=== PATIENT | male | born 1960 | race Caucasian/White ===

== ENCOUNTER 2021-06-03 23:16 | Inpatient (IN) | payer OTHER, SELFPAY ==
[~2021-06-03] VITALS: Ht 208.3 cm; Wt 104.8 kg
[2021-06-03 23:25] VITALS: BP 107/62
--- NOTE | 2021-06-03 23:29 | NUR ---
AMBULATED TO ER BED 3
--- NOTE | 2021-06-03 23:40 | NUR ---
Dr. Trinh with pt for MSE
[2021-06-03] MEDS ORDERED: ACETAMINOPHEN EXTRA STRENGTH 500 MG TAB PO ONE (23:50)
[2021-06-03] MEDS ORDERED: cefTRIAXone 1,000 MG in DEXT 5% MINI-BAG PLUS 50 ML IV ONE (23:50)
[2021-06-03] MEDS ORDERED: IPRATROPIUM 0.02% 0.5 MG/2.5 ML NEBU INH ONE (23:50)
[2021-06-03] MEDS ORDERED: DEXAMETHASONE 4 MG/ML VIAL IVP ONE (23:50)
[2021-06-03] MEDS ORDERED: AZITHROMYCIN 250 MG TAB PO ONE (23:50)
[2021-06-03] MEDS ORDERED: ALBUTEROL 0.083% 2.5 MG/3 ML NEBU INH ONE (23:50)
--- NOTE | 2021-06-03 23:51 | NUR ---
glenda swab collected.
[2021-06-04 00:05] LABS: BASOPHILS % (AUTO) 0.5 % (0.0-2.0); LYMPHOCYTES # (AUTO) 0.6 K/uL (2.0-11.5); LYMPHOCYTES % (AUTO) 8.2 % (20.5-51.1); MEAN CORPUSCULAR HEMOGLOBIN 31 pg (27-31); MEAN CORPUSCULAR HGB CONC 34 g/dL (33-37); MEAN CORPUSCULAR VOLUME 90.4 fL (80-94); MONOCYTES # (AUTO) 0.4 K/uL (0.8-1.0); NEUTROPHILS # (AUTO) 6.1 K/uL (1.8-7.7); NEUTROPHILS % (AUTO) 86.3 % (42.2-75.2); PLATELET COUNT (AUTO) 223 K/uL (140-450); RED BLOOD CELL COUNT(AUTO) 4.87 MIL/uL (4.20-6.10); RED CELL DISTRIBUTION WIDTH 13.4 % (11.6-13.7); WHITE BLOOD COUNT (AUTO) 7.1 K/uL (4.8-10.8)
[2021-06-04 00:31] LABS: ALBUMIN 3.1 g/dL (3.4-5.0); ANION GAP 14.1 (8-16); CARBON DIOXIDE 24.5 mmol/L (21-32); CREATININE 0.9 mg/dL (0.6-1.3); POTASSIUM 3.6 mmol/L (3.5-5.1); TOTAL BILIRUBIN 0.5 mg/dL (0.0-1.0)
--- NOTE | 2021-06-04 01:03 | NUR ---
returned from breathing tx outside back to room
[2021-06-04] MEDS ORDERED: ACETAMINOPHEN EXTRA STRENGTH 500 MG TAB ONE (01:05)
[2021-06-04] MEDS ORDERED: cefTRIAXone 1,000 MG VIAL ONE (01:05)
[2021-06-04] MEDS ORDERED: DEXAMETHASONE 4 MG/ML VIAL ONE (01:05)
[2021-06-04] MEDS ORDERED: AZITHROMYCIN 250 MG TAB ONE (01:05)
--- NOTE | 2021-06-04 02:20 | NUR ---
NAD at this time. pt provided with pillow.
--- NOTE | 2021-06-04 04:11 | NUR ---
NAD. pt appears sleeping arousable via verbal stimuli.
--- NOTE | 2021-06-04 06:07 | NUR ---
pt states no needs at this time. NAD. VSS
[2021-06-04 06:27] LABS: BASOPHILS % (AUTO) 0.3 % (0.0-2.0); HEMATOCRIT 41.9 % (36-52); HEMOGLOBIN 14.4 g/dL (12.0-18.0); LYMPHOCYTES # (AUTO) 0.3 K/uL (2.0-11.5); LYMPHOCYTES % (AUTO) 3.7 % (20.5-51.1); MEAN CORPUSCULAR HEMOGLOBIN 31 pg (27-31); MEAN CORPUSCULAR HGB CONC 34 g/dL (33-37); MEAN CORPUSCULAR VOLUME 91.1 fL (80-94); MONOCYTES # (AUTO) 0.4 K/uL (0.8-1.0); MONOCYTES % (AUTO) 5.2 % (1.7-9.3); NEUTROPHILS # (AUTO) 7.4 K/uL (1.8-7.7); NEUTROPHILS % (AUTO) 90.8 % (42.2-75.2); PLATELET COUNT (AUTO) 232 K/uL (140-450); RED BLOOD CELL COUNT(AUTO) 4.61 MIL/uL (4.20-6.10); RED CELL DISTRIBUTION WIDTH 13.3 % (11.6-13.7); WHITE BLOOD COUNT (AUTO) 8.1 K/uL (4.8-10.8)
[2021-06-04 06:47] LABS: ALBUMIN 2.9 g/dL (3.4-5.0); ANION GAP 11.4 (8-16); CARBON DIOXIDE 27.2 mmol/L (21-32); POTASSIUM 3.6 mmol/L (3.5-5.1); TOTAL BILIRUBIN 0.4 mg/dL (0.0-1.0)
--- NOTE | 2021-06-04 07:22 | NUR ---
RECEIVED REPORT FROM DELTA SWEENEY. TRANSFER OF CARE RECEIVED
[2021-06-04] MEDS ORDERED: ALBUTEROL HFA MDI 90 MCG/ACTUATION 8 GM INH PRN (07:35)
[2021-06-04] MEDS ORDERED: AZITHROMYCIN 250 MG TAB PO ONE (07:35)
--- NOTE | 2021-06-04 08:05 | NUR ---
Patient admitted to room 113 via gurney from ED. Received report from ED nurse Nery. Patient was able to ambulate 10ft from gurney to bed with steady gait. No signs of distress. Respirations even & nonlabored in room air. Left AC 20G IV intact and asymptomatic.
[2021-06-04] MEDS: ASCORBIC ACID 500 MG TAB PO SCH (08:10)
[2021-06-04] MEDS: AZITHROMYCIN 250 MG TAB PO SCH (08:10)
[2021-06-04] MEDS: VITAMIN D 400 IU TAB PO SCH (08:10)
[2021-06-04] MEDS: ZINC SULF 220 MG CAP PO SCH ×2 (08:10→20:06)
--- NOTE | 2021-06-04 08:14 | NUR ---
Patient will be admitted to care of DR. MAUDE BRYANT. Admited to TELE. Will go to room 113. Belongings list completed. Report to DELTA CLIFFORD.
[2021-06-04 08:30] VITALS: BP 137/70
[2021-06-04] MEDS: ENOXAPARIN 40 MG/0.4 ML SYR SUBQ SCH (08:34)
[2021-06-04 12:00] VITALS: BP 136/76
--- NOTE | 2021-06-04 14:00 | NUR ---
Teaching provided to patient re: proper use of incentive spirometer. Patient is able to return demonstrate the instructions provided. Encouraged patient to use IS about 10 times every hour while awake. Patient verbalized understanding and agree with care plan.
[2021-06-04 16:00] VITALS: BP 124/68
--- NOTE | 2021-06-04 16:01 | NUR ---
PATIENT HAS BEEN SCREENED AND CATEGORIZED MODERATE NUTRITION RISK. PATIENT WILL BE SEEN WITHIN 3-5 DAYS OF ADMISSION. 06/06/21 06/08/[address]
--- NOTE | 2021-06-04 16:24 | NUR ---
DC PLANNING: RECEIVED A CALL FROM [facility] BAG PATCHER PROVIDE THE REF NUMBER [phone] AND ASKED ME TO CALL THE CM CARLYLE SANDRA [phone] CALLED LEFT A MESSAGE. FAXED ALL THE CLINICALS TO [phone]. CM TO FOLLOW Addendum: 06/08/21 at 1520 by Concetta Clark RN DC PLANNING: CALLED [facility]A WENT STRAIGHT TO LEFT A MESSAGE. CM TO FOLLOW Addendum: 06/09/21 at 1030 by Concetta Clark RN DC PLANNING: FAXED THE HOME O2 ORDER TO [facility] [phone]. CM TO FOLLOW Addendum: 06/09/21 at 1256 by Concetta Clark RN DC PLANNING: RECEIVED A CALL FROM [employer] SPOKE WITH [facility] STATED WILL FAX THE FORM AND NEEDS TO BE SIGNED BY . FAXED BACK THE SIGNED FORM , AWAITING FOR THE ETA. CM TO FOLLOW Addendum: 06/09/21 at 1310 by Concetta Clark RN DC PLANNING: RECEIVED A CALL FROM [facility] [phone] SPOKE WITH SAMIA KIMBROUGH STATED ALL THE DAYS IS APPROVED UNTIL 06/08 AUTH # [id number] AND [employer] IS CONTRACTED WITH THEM. CM TO FOLLOW Addendum: 06/09/21 at 1517 by Concetta Clark RN DC PLANNING: CHECKED WITH [facility] REGARDING THE HOME O2 SPOKE WITH [facility] STATED RECEIVED THE FORM AND STILL NO ETA BUT ONCE ITS DONE THEY WILL CALL FOR THE ETA. PROVIDE CM AND UNIT NUMBER. Addendum: 06/09/21 at 1714 by Concetta Clark RN DC PLANNING: RECEIVED A CALL FROM [facility] SPOKE WITH [employer] STATED THE ETA TIME TO HOME 6-9PM AND TO THE HOSPITAL BETWEEN 6-9PM NOTIFIED PT'S DAUGHTER ADRIANE AND CHARGE NURSE ORESTES. CM TO FOLLOW
[2021-06-04] MEDS ORDERED: DIPHENOXYLATE /ATROPINE 2.5 MG TAB PO PRN (16:50)
[2021-06-04] MEDS: NACL 0.9% 1,000 ML IV SCH (17:08)
[2021-06-04 20:00] VITALS: BP 130/72
--- NOTE | 2021-06-04 20:15 | NUR ---
RECEIVED BEDSIDE ENDORSEMENT FROM AM SHIFT, A&OX4, DROPLET PRECAUTION DUE TO COVID, CURRENTLY HAS NS 100ML/HR RUNNING, LAC 18G, SKIN INTACT, SAFETY MEASURES IN PLACE, CALL LIGHT WITHIN REACH, WILL CONTINUE TO MONITOR.
--- NOTE | 2021-06-04 20:18 | NUR ---
PATIENT IS AWAKE, FIXED HIS IV MACHINE, DUE MEDS GIVEN ORDERED, MED EDUCATION PROVIDED, VERBALIZED UNDERSTANDING, WILL CONTINUE TO MONITOR, CALL LIGHT WITHIN REACH.
[2021-06-05] VITALS: BP 126/74
--- NOTE | 2021-06-05 00:08 | NUR ---
administered scheduled medication, no a/r noted, tolerated well, kept comfortable, call light within reach.
[2021-06-05] MEDS: NACL 0.9% 1,000 ML IV SCH ×3 (02:48→15:35)
--- NOTE | 2021-06-05 02:49 | NUR ---
PATIENT IS KEPT COMFORTABLE, NO SIGNS OF DISTRESS, DID NOT ADMINISTER 0250 NS BECAUSE ORIGINAL NS BAG IS STILL INFUSING, SAFETY MEASURES IN PLACE, CALL LIGHT WITHIN REACH.
[2021-06-05 04:00] VITALS: BP 125/74
--- NOTE | 2021-06-05 04:04 | NUR ---
IVF FINISHED, REPLACED W/ 1 LITER OF NS AT 100 ML/ HR ORDERED, PATIENT AWAKE, CALL LIGHT WITHIN REACH.
--- NOTE | 2021-06-05 05:18 | NUR ---
PATIENT IS AWAKE AND ALERT, KEPT COMFORTABLE WATCHING TELEVISION, IV PUMP WAS ALARMING BUT FIXED, KEPT COMFORTABLE, CALL LIGHT WITHIN REACH, WILL CONTINUE TO MONITOR.
--- NOTE | 2021-06-05 07:15 | NUR ---
PATIENT STABLE, ALL NEEDS ATTENDED, NO SOB, SAFETY MEASURES IN PLACE, CALL LIGHT WITHIN REACH. ENDORSED AT BEDSIDE TO AM SHIFT RN.
--- NOTE | 2021-06-05 07:16 | NUR ---
RECEIVE REPORT FROM FARM SERVICE CONSULTANT NURSE FOR CONTINUITY OF CARE. PATIENT SLEEPING. BREATHING EVEN AND UNLABORED. ALL SAFETY MEASURES IN PLACE. WILL CONTINUE TO MONITOR.
[2021-06-05 07:46] LABS: BASOPHILS % (AUTO) 0.1 % (0.0-2.0); HEMATOCRIT 40.4 % (36-52); HEMOGLOBIN 13.9 g/dL (12.0-18.0); LYMPHOCYTES % (AUTO) 8.8 % (20.5-51.1); MEAN CORPUSCULAR HEMOGLOBIN 31 pg (27-31); MEAN CORPUSCULAR HGB CONC 34 g/dL (33-37); MEAN CORPUSCULAR VOLUME 89.6 fL (80-94); MONOCYTES # (AUTO) 0.7 K/uL (0.8-1.0); MONOCYTES % (AUTO) 6.6 % (1.7-9.3); NEUTROPHILS # (AUTO) 9.4 K/uL (1.8-7.7); NEUTROPHILS % (AUTO) 84.5 % (42.2-75.2); PLATELET COUNT (AUTO) 243 K/uL (140-450); RED BLOOD CELL COUNT(AUTO) 4.51 MIL/uL (4.20-6.10); RED CELL DISTRIBUTION WIDTH 13.2 % (11.6-13.7); WHITE BLOOD COUNT (AUTO) 11.1 K/uL (4.8-10.8)
[2021-06-05 07:54] LABS: ALBUMIN 2.7 g/dL (3.4-5.0); ANION GAP 11.5 (8-16); CARBON DIOXIDE 26.1 mmol/L (21-32); CREATININE 0.7 mg/dL (0.6-1.3); POTASSIUM 3.6 mmol/L (3.5-5.1); TOTAL BILIRUBIN 0.4 mg/dL (0.0-1.0)
[2021-06-05 08:00] VITALS: BP 132/71
[2021-06-05] MEDS: AZITHROMYCIN 250 MG TAB PO SCH (09:04)
[2021-06-05] MEDS: LACTOBACILLUS RHAMNOSUS GG 1 EACH CAP PO SCH (09:04)
[2021-06-05] MEDS: VITAMIN D 400 IU TAB PO SCH (09:04)
[2021-06-05] MEDS: ZINC SULF 220 MG CAP PO SCH ×2 (09:05→20:09)
[2021-06-05] MEDS: ENOXAPARIN 40 MG/0.4 ML SYR SUBQ SCH (09:05)
[2021-06-05] MEDS: ASCORBIC ACID 500 MG TAB PO SCH (09:05)
--- NOTE | 2021-06-05 09:18 | NUR ---
PATIENT AWAKE AND ALERT. BREATHING EVEN AND UNLABORED. ROUTINE MEDICATION GIVEN. ALL SAFETY MEASURES IN PLACE. WILL CONTINUE TO MONITOR.
[2021-06-05] MEDS ORDERED: ACETAMINOPHEN EXTRA STRENGTH 500 MG TAB PO PRN (10:00)
--- NOTE | 2021-06-05 10:18 | NUR ---
PLACED ON SUPPLEMENTAL OXYGEN AT 2 LPM VIA BUBBLE HUMIDIFIED/NASAL CANNULA TEXTBOOK ASSOCIATE TO MONITOR AND NOTIFY ZAK/RN Addendum: 06/05/21 at 1050 by Praneeth Menchaca RT GIA/DELTA NOTIFIED Addendum: 06/05/21 at 1126 by Praneeth Menchaca RT SUPPLEMENTAL OXYGEN PLACED TO KEEP SATURATION GREATER THAN 92% ORDERED
--- NOTE | 2021-06-05 10:54 | NUR ---
RT ENDORSED THAT PATIENT PUT BACK ON 2 L O2. PATIENT SATING LOWER THAN 90% PRIOR TO O2. PATIENT NOW SATING 95%
[2021-06-05 12:00] VITALS: BP 126/73
--- NOTE | 2021-06-05 12:29 | NUR ---
PATIENT AWAKE SITING UP IN BED. PATIENT HAVING LUNCH. PATIENT DENIES PAIN AT THIS TIME. PATIENT SATING ABOVE 92% ON 2 L VIA NASAL CANNULA. ALL SAFETY MEASURES IN PLACE. CALL LIGHT WITHIN REACH. WILL CONTINUE TO MONITOR.
--- NOTE | 2021-06-05 14:44 | NUR ---
PATIENT AWAKE. BREATHING EVEN AND UNLABORED. PATIENT ON 2 L VIA NC. RT AT BEDSIDE. ALL SAFETY MEASURES IN PLACE. WILL CONTINUE TO MONITOR.
[2021-06-05 16:00] VITALS: BP 127/80
--- NOTE | 2021-06-05 16:07 | NUR ---
PATIENT AWAKE AND ALERT. NO ACUTE DISTRESS NOTED. ALL SAFETY MEASURES IN PLACE. WILL CONTINUE TO MONITOR .
[2021-06-05] MEDS ORDERED: ZINC220C29 PO (16:49)
[2021-06-05] MEDS ORDERED: VITD400 PO (16:49)
[2021-06-05] MEDS ORDERED: VITC500 PO (16:49)
[2021-06-05] MEDS ORDERED: DEXA6TAB1 PO (16:50)
--- NOTE | 2021-06-05 17:01 | NUR ---
PATIENT AWAKE AND ALERT. PATIENT WATCHING TV. PATIENT ON 2 L VIA NASAL CANNULA. ALL SAFETY MEASURES IN PLACE. WILL CONTINUE TO MONITOR.
--- NOTE | 2021-06-05 19:05 | NUR ---
ENDORSED TO FISHER CLAM NURSE FOR CONTINUITY OF CARE. PATIENT STABLE. ALL SAFETY MEASURES IN PLACE.
--- NOTE | 2021-06-05 19:22 | NUR ---
RECEIVED BEDSIDE ENDORSEMENT FROM AM SHIFT, A&OX4, DROPLET PRECAUTION DUE TO COVID, CURRENTLY HAS NS 100ML/HR RUNNING, LAC 18G, SKIN INTACT, AMBULATORY, RECEIVING 2L NASAL CANNULA, O2 SAT>90%, SAFETY MEASURES IN PLACE, CALL LIGHT WITHIN REACH, WILL CONTINUE TO MONITOR.
[2021-06-05 20:00] VITALS: BP 122/79
--- NOTE | 2021-06-05 20:18 | NUR ---
ADMINISTERED MED GIVEN, ATTACHED NEW EKG LEADS, PATIENT IS COMFORTABLE, IV SITE WAS INFILTRATED, DISCONNECTED IV TUBING, WILL ATTACH A NEW ONE, CALL LIGHT WITHIN REACH, WILL CONTINUE TO MONITOR.
[2021-06-06] VITALS: BP 128/73
--- NOTE | 2021-06-06 00:27 | NUR ---
ADMINISTERED SCHEDULED MED, PROVIDED MED EDUCATION, PATIENT VERBALIZED UNDERSTANDING, KEPT COMFORTABLE, CALL LIGHT WITHIN REACH, WILL CONTINUE TO MONITOR CLOSELY.
--- NOTE | 2021-06-06 01:58 | NUR ---
PATIENT IS KEPT COMFORTABLE, SAFETY MEASURES IN PLACE, WILL CONTINUE TO MONITOR LABS/VITAL SIGNS, NO SIGNS OF RESPIRATORY DISTRESS, CALL LIGHT WITHIN REACH.
[2021-06-06 04:00] VITALS: BP 138/72
[2021-06-06] MEDS: NACL 0.9% 1,000 ML IV SCH ×2 (06:16→18:55)
--- NOTE | 2021-06-06 06:16 | NUR ---
PATIENT IS ALERT AND AWAKE, KEPT COMFORTABLE, SAFETY MEASURES IN PLACE, CALL LIGHT WITHIN REACH, INFUSING NS.
--- NOTE | 2021-06-06 07:25 | NUR ---
RECEIVED REPORT FROM CALENDERING SUPERVISOR NURSE FOR CONTINUITY OF CARE. PT IS AWAKE AND ALERT. PT ON NASAL CANULA 2 LITERS OXYGEN. NO DISTRESS NOTED. PT ON TELE MONITOR ON SINUS RHYTHM. SKIN IS DRY, WARM AND INTACT. IV ON RIGHT AC 22 GAUGE WITH NS RUNNING AT 100 ML/HR. CALL LIGHT WITHIN REACH. WILL CONTINUE TO MONITOR.
--- NOTE | 2021-06-06 07:30 | NUR ---
PATIENT STABLE, NO SIGN OF DISTRESS, NO SOB, ALL NEEDS ATTENDED, CALL LIGHT WITHIN REACH. ENDORSED AT BEDSIDE TO AM SHIFT RN.
[2021-06-06 08:00] VITALS: BP 138/73
[2021-06-06] MEDS ORDERED: remdesivir COMMUNICATION ORDER 1 EA MISC MC PRN (08:40)
[2021-06-06] MEDS ORDERED: remdesivir CLINICAL MONITORING 1 EA MISC MC PRN (08:45)
[2021-06-06] MEDS: ZINC SULF 220 MG CAP PO SCH ×2 (09:13→21:00)
[2021-06-06] MEDS: ASCORBIC ACID 500 MG TAB PO SCH (09:13)
[2021-06-06] MEDS: VITAMIN D 400 IU TAB PO SCH (09:13)
[2021-06-06] MEDS: LACTOBACILLUS RHAMNOSUS GG 1 EACH CAP PO SCH (09:13)
[2021-06-06] MEDS: AZITHROMYCIN 250 MG TAB PO SCH (09:14)
[2021-06-06] MEDS: ENOXAPARIN 40 MG/0.4 ML SYR SUBQ SCH (09:21)
--- NOTE | 2021-06-06 09:24 | NUR ---
ADMINISTERED PRESCRIBED MEDICATION. PT TOLERATED WELL. MEDICATION EDUCATION PERFORMED. PT VERBALIZED UNDERSTANDING. PT IS STABLE. SAFETY MEASURES IN PLACE WILL CONTINUE TO MONITOR.
[2021-06-06] MEDS ORDERED: REMDESIVIR. 200 MG in NACL 0.9% 100 ML IV SCH (10:00)
--- NOTE | 2021-06-06 10:38 | NUR ---
RECEIVED ON A BUBBLE HUMIDIFIED SUPPLEMENTAL OXYGEN AT 2 LPM VIA NC SATURATION 97% HR 80 RR 20 LOC AWAKE AND ALERT VERBALLY RESPONSIVE BREATH SOUNDS: CLEAR APEX TO MID WITH GOOD AERATION; RALES BILATERAL BASES TITRATED FIO2 TO 1 LPM FIDELINA/RN NOTIFIED STREETCAR MOTORMAN TO MONITOR
--- NOTE | 2021-06-06 10:45 | NUR ---
TALKED TO DAUGHTER LUCY, . GAVE AN UPDATE ON HER FATHERS STATUS. ANSWERED ANY QUESTIONS.
--- NOTE | 2021-06-06 11:55 | NUR ---
PT IS ON 1L OXYGEN NASAL CANULA, 02 SAT AT 94. PT IS WATCHING TELEVISION. URINAL WAS PROVIDED AND IS AT BEDSIDE. CALL LIGHT WITHIN REACH. WILL CONTINUE TO MONITOR.
[2021-06-06 12:00] VITALS: BP 135/78
--- NOTE | 2021-06-06 13:45 | NUR ---
PT IS SLEEPING WITH SYMMETRICAL CHEST RISE AND FALL. PT ON NC 02 1L, SAT 94. PT IS STABLE. CALL LIGHT WITHIN REACH. WILL CONTINUE TO MONITOR.
--- NOTE | 2021-06-06 15:30 | NUR ---
PT IS AWAKE AND ALERT. PT STATES THAT HE'S OK. PT ON NASAL CANULA 1L OXYGEN, O2 SAT AT 92. PT IS STABLE. WILL CONTINUE TO MONITOR.
[2021-06-06 16:00] VITALS: BP 140/81
--- NOTE | 2021-06-06 16:50 | NUR ---
TALKED TO LUCY, DAUGHTER, AND GAVE HER UPDATES ON FATHER.
--- NOTE | 2021-06-06 18:30 | NUR ---
RECEIVED A CALLED FROM DR. CAST TO DC ROCEPHIN AND AZYTHROMYCIN.
--- NOTE | 2021-06-06 18:45 | NUR ---
PT FAMILY BROUGHT DROPPED OFF A BACKPACK WITH SNACKS FOR THE PT. BACKPACK IN PT ROOM ON THE CHAIR.
--- NOTE | 2021-06-06 19:25 | NUR ---
ENDORSED REPORT TO NIGHTSHIFT NURSE FOR CONTINUITY OF CARE. PT IS STABLE.
--- NOTE | 2021-06-06 19:30 | NUR ---
RECEIVED REPORT FROM FIDELINA SORENSON FOR CONTINUITY OF CARE. PT SITTING UP AAOX4. NO APPARENT S/S OF ACUTE DISTRESS. BREATHING EVEN AND UNLABORED ON 1L NC WITH O2 SAT OF 95%. NO C/O CP, SOB OR PAIN. R AC 22G INTACT/PATENT WITH NS@100ML/HR. POC AND WHITE COMMUNICATION BOARD UPDATED. BED IN LOW/LOCKED POSITION. CALL LIGHT WITHIN REACH. PT ENCOURAGED TO CALL FOR ANY NEEDS/ASSISTANCE. WILL CONTINUE TO MONITOR.
[2021-06-06 20:00] VITALS: BP 134/98
--- NOTE | 2021-06-06 22:30 | NUR ---
MEDICATED PER EMAR, TOLERATED WELL.
[2021-06-07] VITALS: BP 135/85
[2021-06-07 04:00] VITALS: BP 133/78
[2021-06-07] MEDS: NACL 0.9% 1,000 ML IV SCH ×2 (04:50→05:46)
--- NOTE | 2021-06-07 06:09 | NUR ---
SPOKE TO DAUGHTER LUCY, UPDATED ON PATIENT STATUS.
--- NOTE | 2021-06-07 06:56 | NUR ---
PT SITTING UP AAOX4. NO APPARENT S/S OF ACUTE DISTRESS. BREATHING EVEN AND UNLABORED ON 2L NC. NO C/O CP, SOB OR PAIN. BED IN LOW/LOCKED POSITION. CALL LIGHT WITHIN REACH. WILL ENDORSE CARE TO AM RN. ALL NEEDS MET AT THIS ANGELIKA.E
[2021-06-07 08:00] VITALS: BP 135/80
--- NOTE | 2021-06-07 08:43 | NUR ---
Patient wake, alert and oriented, able to verbalize needs. Vitals stable and currently on 3 l of Oxygen. Educated on importance of using incentive spirometer, patient demonstrated use and goes up 1500. Remains in bed and has no further needs.
[2021-06-07 09:17] LABS: BASOPHILS % (AUTO) 0.3 % (0.0-2.0); HEMATOCRIT 43.4 % (36-52); HEMOGLOBIN 14.6 g/dL (12.0-18.0); LYMPHOCYTES # (AUTO) 1.2 K/uL (2.0-11.5); LYMPHOCYTES % (AUTO) 12.1 % (20.5-51.1); MEAN CORPUSCULAR HEMOGLOBIN 31 pg (27-31); MEAN CORPUSCULAR HGB CONC 34 g/dL (33-37); MEAN CORPUSCULAR VOLUME 92.7 fL (80-94); MONOCYTES # (AUTO) 0.7 K/uL (0.8-1.0); MONOCYTES % (AUTO) 7.8 % (1.7-9.3); NEUTROPHILS # (AUTO) 7.6 K/uL (1.8-7.7); NEUTROPHILS % (AUTO) 79.8 % (42.2-75.2); PLATELET COUNT (AUTO) 378 K/uL (140-450); RED BLOOD CELL COUNT(AUTO) 4.68 MIL/uL (4.20-6.10); RED CELL DISTRIBUTION WIDTH 13.3 % (11.6-13.7); WHITE BLOOD COUNT (AUTO) 9.5 K/uL (4.8-10.8)
[2021-06-07 09:37] LABS: MAGNESIUM 2.2 mg/dL (1.8-2.4); PHOSPHORUS 3.3 mg/dL (2.5-4.9)
[2021-06-07 09:38] LABS: ALBUMIN 2.6 g/dL (3.4-5.0); ANION GAP 10.6 (8-16); CARBON DIOXIDE 28.6 mmol/L (21-32); CREATININE 0.7 mg/dL (0.6-1.3); POTASSIUM 4.2 mmol/L (3.5-5.1); TOTAL BILIRUBIN 0.5 mg/dL (0.0-1.0)
[2021-06-07] MEDS: LACTOBACILLUS RHAMNOSUS GG 1 EACH CAP PO SCH (09:55)
[2021-06-07] MEDS: VITAMIN D 400 IU TAB PO SCH (09:55)
[2021-06-07] MEDS: ASCORBIC ACID 500 MG TAB PO SCH (09:56)
[2021-06-07] MEDS: ZINC SULF 220 MG CAP PO SCH ×2 (09:57→20:50)
[2021-06-07] MEDS: ENOXAPARIN 40 MG/0.4 ML SYR SUBQ SCH (09:58)
[2021-06-07 12:00] VITALS: BP 135/84
[2021-06-07] MEDS: REMDESIVIR. 100 MG in NACL 0.9% 100 ML IV SCH (12:36)
[2021-06-07] MEDS ORDERED: remdesivir COMMUNICATION ORDER 1 EA MISC MC PRN (13:50)
[2021-06-07 16:00] VITALS: BP 138/76
--- NOTE | 2021-06-07 19:10 | NUR ---
RECEIVED REPORT FROM CHERELLE SORENSON FOR CONTINUITY OF CARE. PT SITTING UP AAOX4. NO APPARENT S/S OF ACUTE DISTRESS. BREATHING EVEN AND UNLABORED ON 2L NC WITH O2 SAT OF 97%. NO C/O CP, SOB OR PAIN. L HAND 22G INTACT/PATENT WITH NS@100ML/HR. POC AND WHITE COMMUNICATION BOARD UPDATED. BED IN LOW/LOCKED POSITION. CALL LIGHT WITHIN REACH. PT ENCOURAGED TO CALL FOR ANY NEEDS/ASSISTANCE. WILL CONTINUE TO MONITOR.
[2021-06-08 00:58] VITALS: BP_SYST 133; BP_SYST 138; BP_DIAS 76; BP_DIAS 89
[2021-06-08 04:00] VITALS: BP 136/75
[2021-06-08] MEDS: NACL 0.9% 1,000 ML IV SCH (04:05)
--- NOTE | 2021-06-08 06:55 | NUR ---
PT SITTING UP AAOX4. NO APPARENT S/S OF ACUTE DISTRESS. BREATHING EVEN AND UNLABORED. NO C/O CP, SOB OR PAIN. BED IN LOW/LOCKED POSITION. CALL LIGHT WITHIN REACH. WILL ENDORSE CARE TO AM RN. ALL NEEDS MET AT THIS TIME.
--- NOTE | 2021-06-08 07:15 | NUR ---
RECEIVED REPORT FROM WELDER APPRENTICE ARC NURSE FOR CONTINUITY OF CARE. PATIENT AWAKE AND ALERT. PATIENT 2LITERS VIA NC. NO DISTRESS NOTED. ALL SAFETY MEASURES IN PLACE. WILL CONTINUE TO MONITOR.
[2021-06-08 07:25] LABS: ALBUMIN 2.6 g/dL (3.4-5.0); ANION GAP 11.4 (8-16); CARBON DIOXIDE 27.5 mmol/L (21-32); CREATININE 0.7 mg/dL (0.6-1.3); POTASSIUM 3.9 mmol/L (3.5-5.1); TOTAL BILIRUBIN 0.5 mg/dL (0.0-1.0)
[2021-06-08 08:00] VITALS: BP 144/82
--- NOTE | 2021-06-08 09:10 | NUR ---
LOC ALERT AND AWAKE VERBALLY RESPONSIVE TO CHIEF HOSPITAL ADMINISTRATOR VERBAL COMMANDS HFW POSITION GOOD CHEST RISE BREATH SOUNDS CLEAR LEFT SIDE RUL RML FEW RALES RLL AIRWAY PATENT BUBBLE HUMIDIFIED SUPPLEMENTAL OXYGEN AT 2 LPM VIA NC SATURATION 96% TITRATED FIO2 TO 1 LPM CHIEF HOSPITAL ADMINISTRATOR TO MONITOR AND TITRATE NEEDED CHIEF HOSPITAL ADMINISTRATOR TO NOTIFY DAY RN OF OXYGEN TITRATION
[2021-06-08] MEDS: ASCORBIC ACID 500 MG TAB PO SCH (09:19)
[2021-06-08] MEDS: VITAMIN D 400 IU TAB PO SCH (09:20)
[2021-06-08] MEDS: LACTOBACILLUS RHAMNOSUS GG 1 EACH CAP PO SCH (09:20)
[2021-06-08] MEDS: ZINC SULF 220 MG CAP PO SCH ×2 (09:21→20:25)
--- NOTE | 2021-06-08 09:21 | NUR ---
PATIENT AWAKE AND ALERT. PATIENT ON 2L VIA NASAL CANNULA SATING AT 94%. NO ACUTE DISTRESS NOTED. ROUTINE MEDICATION GIVEN. ALL SAFETY MEASURES IN PLACE. WILL CONTINUE TO MONITOR.
[2021-06-08] MEDS: ENOXAPARIN 40 MG/0.4 ML SYR SUBQ SCH (09:23)
--- NOTE | 2021-06-08 09:46 | NUR ---
MELISSA SORENSON KEEP SATURATION GREATER THAN 90%
--- NOTE | 2021-06-08 10:02 | NUR ---
AWAKE RESTING COMFORTABLY NO PULMONARY DISTRESS NOTED GOOD CHEST RISE AND AERATION THROUGH BILATERAL LUNG BLANCO AIRWAY PATENT SUPPLEMENTAL OXYGEN AT 1 LPM VIA NC SATURATION 93% MAPPING EDITOR TO MONITOR AND TITRATE NEEDED
--- NOTE | 2021-06-08 11:31 | NUR ---
PATIENT AWAKE AND ALERT. NO ACUTE DISTRESS NOTED. PATIENT ON 2 L VIA NASAL CANNULA SATING AT 94%. SCHEDULED MEDICATION GIVEN. ALL SAFETY MEASURES IN PLACE. WILL CONTINUE TO MONITOR.
[2021-06-08] MEDS: REMDESIVIR. 100 MG in NACL 0.9% 100 ML IV SCH (11:34)
[2021-06-08 12:00] VITALS: BP 143/87
--- NOTE | 2021-06-08 13:18 | NUR ---
PATIENT AWAKE AND ALERT. PATIENT ON 1 LITER VIA NC SATING AT 93%. NO ACUTE DISTRESS NOTED. ALL SAFETY MEASURES IN PLACE. WILL CONTINUE TO MONITOR.
--- NOTE | 2021-06-08 13:34 | NUR ---
06/08/21 RD INITIAL ASSESSMENT COMPLETED PLEASE REFER TO NUTRITION ASSESSMENT UNDER CARE ACTIVITY FOR ESTIMATED NUTRITIONAL NEEDS. 1. CONTINUE REGULAR DIET TOLERATED 2. MAKE SURE PT IS CONSUMING MORE THAN >75% OF MEALS. 3. RD PROVIDED COVID NUTRITION EDUCATION HANDOUT. 4. RD TO FOLLOW-UP 3-5 DAYS, MOD RISK SUNITHA REAL RD
--- NOTE | 2021-06-08 14:32 | NUR ---
PATIENT AWAKE AND ALERT. NO ACUTE DISTRESS NOTED. PATIENT ON 1 L NASAL CANNULA. PATIENT SATING AT 93%. PATIENT DENIES PAIN AT THIS TIME. ALL SAFETY MEASURES IN PLACE. CALL LIGHT WITHIN REACH. WILL CONTINUE TO MONITOR.
[2021-06-08 16:00] VITALS: BP 128/79
--- NOTE | 2021-06-08 16:14 | NUR ---
PATIENT AWAKE AND ALERT. PATIENT ON 1.5 LITERS VIA NASAL CANNULA SATING AT 93%. PATIENT DENIES PAIN AT THIS TIME. ALL SAFETY MEASURES IN PLACE. WILL CONTINUE TO MONITOR.
--- NOTE | 2021-06-08 18:05 | NUR ---
PATIENT AWAKE SITING UP IN BED. PATIENT UP IN BED EATING DINNER. PATIENT 1 L VIA NASAL CANNULA SATING AT 95%. NO ACUTE DISTRESS NOTED. ALL SAFETY MEASURES IN PLACE. CALL LIGHT WITHIN REACH. WILL CONTINUE TO MONITOR.
--- NOTE | 2021-06-08 19:05 | NUR ---
ENDORSED TO CHIP FRIER NURSE FOR CONTINUITY OF CARE. PATIENT STABLE. ALL SAFETY MEASURES IN PLACE. CALL LIGHT WITHIN REACH.
--- NOTE | 2021-06-08 19:15 | NUR ---
RECEIVED REPORT FROM RN DAYSHIFT NURSE AT BEDSIDE FOR CONTINUITY OF CARE, PT IN STABLE CONDITION.
[2021-06-08 20:00] VITALS: BP 143/86
--- NOTE | 2021-06-08 20:00 | NUR ---
PT SITTING UP IN BED AOX4 ON 1.5 LITERS 02 VIA N/C. V/S FOLLOWS; T 98.4 P 84 R 18 B/P 143/86 02 93% ON ROOM AIR. HE HAS A LEFT HAND 22G RUNNING NORMAL SALINE AT 20MLS/HR. PT HAS NO C/OF PAIN OR SOB. ALL ORDERED PRECAUTIONS IN PLACE.
--- NOTE | 2021-06-08 21:00 | NUR ---
PT SITTING UP IN BED WATCHING THE BALL GAME. LUNGS CLEAR BUT DIMINISHED ON 1.5 LITERS VIA 02. PT GIVEN ORDERED ZINC SULFATE . EDUCATION REGARDING MEDICATION PROVIDED AT BEDSIDE, PT VERBALIZED UNDERSTANDING. ALL ORDERED PRECAUTIONS IN PLACE.
[2021-06-09] VITALS: BP 152/86
--- NOTE | 2021-06-09 | NUR ---
PT SLEEPING NO C/O VOICED REMAINS ON OXYMIZER AT 1.5 LITERS. N/S RUNNING ORDERED. V/S STABLE.
--- NOTE | 2021-06-09 03:03 | NUR ---
FIO2 TITRATED TO 46%
[2021-06-09 04:00] VITALS: BP 137/82
--- NOTE | 2021-06-09 06:00 | NUR ---
PT IN BED NO C/O VOICED HE REMAINS ON 1 LITERS 02 VIA N/C. IV SITE INTACT AND N/S RUNNING ORDERED. V/S STABLE ALL ORDERED PRECAUTIONS IN PLACE.
[2021-06-09] MEDS: NACL 0.9% 1,000 ML IV SCH (06:21)
--- NOTE | 2021-06-09 07:15 | NUR ---
RECEIVE REPORT FROM FISHER HAND LINE NURSE FOR CONTINUITY OF CARE. PATIENT AWAKE AND ALERT. ROOM SERVICE FOOD SERVER AT BEDSIDE. PATIENT ON 1L NC SATING AT 94%. ALL SAFETY MEASURES IN PLACE. CALL LIGHT WITHIN REACH. WILL CONTINUE TO MONITOR.
[2021-06-09 07:16] LABS: ALBUMIN 2.6 g/dL (3.4-5.0); ANION GAP 9.6 (8-16); CARBON DIOXIDE 30.6 mmol/L (21-32); CREATININE 0.8 mg/dL (0.6-1.3); POTASSIUM 4.2 mmol/L (3.5-5.1); TOTAL BILIRUBIN 0.6 mg/dL (0.0-1.0)
[2021-06-09 08:00] VITALS: BP 137/75
[2021-06-09] MEDS: LACTOBACILLUS RHAMNOSUS GG 1 EACH CAP PO SCH (08:53)
[2021-06-09] MEDS: ZINC SULF 220 MG CAP PO SCH (08:54)
[2021-06-09] MEDS: VITAMIN D 400 IU TAB PO SCH (08:55)
[2021-06-09] MEDS: ASCORBIC ACID 500 MG TAB PO SCH (08:55)
[2021-06-09] MEDS: ENOXAPARIN 40 MG/0.4 ML SYR SUBQ SCH (08:56)
--- NOTE | 2021-06-09 09:00 | NUR ---
PATIENT AWAKE AND ALERT. BREATHING EVEN AND UNLABORED. PATIENT ON ONE LITER NASAL CANNULA. PATIENT SATING AT 95%. ROUTINE MEDICATION GIVEN. ALL SAFETY MEASURES IN PLACE. CALL LIGHT WITHIN REACH. WILL CONTINUE TO MONITOR.
[2021-06-09] MEDS ORDERED: DEXA6TAB1 PO (10:38)
[2021-06-09] MEDS ORDERED: METH4TAB3 PO (10:38)
--- NOTE | 2021-06-09 11:41 | NUR ---
PATIENT AWAKE AND ALERT. BREATHING EVEN AND UNLABORED. PATIENT ON 1 L NASAL CANNULA. PATIENT STATING AT 95%. THIN FILM TECHNICIAN AT BEDSIDE PROVIDING PATIENT CARE. ALL SAFETY MEASURES IN PLACE. CALL LIGHT WITHIN REACH. WILL CONTINUE TO MONITOR.
[2021-06-09] MEDS: REMDESIVIR. 100 MG in NACL 0.9% 100 ML IV SCH (11:50)
[2021-06-09 12:00] VITALS: BP 139/84
[2021-06-09] MEDS ORDERED: APIX2.5 PO (12:31)
--- NOTE | 2021-06-09 13:16 | NUR ---
PATIENT SLEEPING. BREATHING EVEN AND UNLABORED. PATIENT EASILY ABUSABLE. PATIENT ON 1 LITER NC NO DISTRESS NOTED. ALL SAFETY MEASURES IN PLACE. CALL LIGHT WITHIN REACH. WILL CONTINUE TO MONITOR.
--- NOTE | 2021-06-09 15:24 | NUR ---
PATIENT AWAKE AND ALERT. BREATHING EVEN AND UNLABORED. PATIENT ON 1 LITER NC NO DISTRESS NOTED. ALL SAFETY MEASURES IN PLACE. CALL LIGHT WITHIN REACH. WILL CONTINUE TO MONITOR.
[2021-06-09 16:00] VITALS: BP 137/83
--- NOTE | 2021-06-09 17:10 | NUR ---
PATIENT AWAKE AND ALERT. NO ACUTE DISTRESS NOTED. PATIENT ON 1 L NASAL CANNULA. PATIENT SATING AT 95%. ALL SAFETY MEASURES IN PLACE. CALL LIGHT WITHIN NORMAL LIMITS. WILL CONTINUE TO MONITOR.
--- NOTE | 2021-06-09 19:10 | NUR ---
ENDORSED TO DIAMOND DIE POLISHER NURSE FOR CONTINUITY OF CARE. PATIENT STABLE. ALL SAFETY MEASURES IN PLACE.
--- NOTE | 2021-06-09 19:15 | NUR ---
RECEIVED BEDSIDE ENDORSEMENT FROM AM SHIFT RN. O2 SAT 94%, NO SIGNS OF DISTRESS, KEPT COMFORTABLE. PATIENT IS TO BE DISCHARGED SOON, WILL CONTACT DAUGHTER - LUCY ABOUT FATHERS DISCHARGE, AWAITING OXYGEN.
--- NOTE | 2021-06-09 20:00 | NUR ---
PATIENT WAS DISCHARGED, W/ DISCHARGED PAPERWORK AND TEACHING GIVING PRIOR, PT ACCOMPANIED WITH DAUGHTER, O2 SUPPLEMENT IN PLACE, IV ACCESS AND ID BAND REMOVED, VITAL SIGNS STABLE.
== END 2021-06-09 20:00 | disposition home or self-care (01) | DRG 871 ==
LOC: MED 23:16 → MTU 06-04 02:18
PROVIDERS: ADMIT Family Medicine; ATTEND Family Medicine
PROC: XW033E5 Introduction of Remdesivir Anti-infective into Peripheral Vein, Percutaneous Approach, New Technology Group 5 (ICD-10-PCS; principal; 2021-06-06)
DX: A41.89 Other specified sepsis (principal); U07.1 COVID-19; J12.82 Pneumonia due to coronavirus disease 2019; J96.01 Acute respiratory failure with hypoxia; E43 Unspecified severe protein-calorie malnutrition; E87.1 Hypo-osmolality and hyponatremia; Z88.0 Allergy status to penicillin; Z68.24 Body mass index [BMI] 24.0-24.9, adult; R74.01 Elevation of levels of liver transaminase levels
CPT/HCPCS: 36415; 71045; 80053; 82550; 82728; 83605; 83615; 83735; 84100; 84484; 85025; 85379; 85651; 86140; 87040; 87045; 87081; 93005; 96365; 96375; 99285; J0696; J1100; J1650; J7060; J7613; J7644